=== PATIENT | male | born 1960 | race American Indian/Alaskan Native ===

== ENCOUNTER 2019-12-28 08:16 | Observation (INO) | payer MEDICARE ==
[2019-12-28 08:56] LABS: Basophils % (Auto) 0.6 % (0.0-1.8); Eosinophils # (Auto) 0.2 K/mm3 (0.0-0.4); Hemoglobin 12.9 gm/dl (11.8-15.2); Lymphocytes # (Auto) 1.3 K/mm3 (1.2-5.4); Lymphocytes % (Auto) 15.6 % (13.4-35.0); Mean Corpuscular HGB Conc 34 % (32-34); Mean Corpuscular Volume 87 fl (84-94); Monocytes # (Auto) 0.8 K/mm3 (0.0-0.8); Monocytes % (Auto) 9.5 % (0.0-7.3); Platelet Count 238 K/mm3 (140-440); Red Blood Count 4.37 M/mm3 (3.65-5.03); Red Cell Distribution Width 14.9 % (13.2-15.2)
[2019-12-28 09:19] LABS: Alanine Aminotransferase 116 units/L (7-56); Albumin 3.8 g/dL (3.9-5); BUN/Creatinine Ratio 4; Blood Urea Nitrogen 3 mg/dL (9-20); Calcium 9.1 mg/dL (8.4-10.2); Hemolysis Index 4
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
--- NOTE | 2019-12-28 12:55 | Cat Scan Report ---
CT abdomen pelvis w con INDICATION: Abd pain. TECHNIQUE: All CT scans at this location are performed using the following dose modulation technique: Automated exposure control. CONTRAST: IV. COMPARISON: None available. CT ABDOMEN: Evaluation of the parenchymal organs demonstrates diffuse thickening of the pancreas with mild adjacent inflammation. No large fluid collection or pancreatic necrosis. The remaining parenchy mal organs are unremarkable other than a subcentimeter left renal cyst. Negative for abdominal mass, fluid or inflammation. The bowel is not dilated or thickened. A a few sc attered noninflamed colonic diverticula are present. CT PELVIS: The appendix is normal. Negative for pelvic mass, fluid or inflammation. IMPRESSION: Mild/moderate diffuse pancreatitis. Signer Name: Santos Dejesus MD Signed: 12/28/2019 12:51 PM Workstation Name: [id number]
[2019-12-28 13:19] LABS: Bilirubin,Urine NEG (Negative); Blood,Urine NEG (Negative); Color,Urine Yellow (Yellow); Protein,Urine <15 mg/dL mg/dL (Negative); Urobilinogen,Urine < 2.0 mg/dL (<2.0); WBC,Urine < 1.0 /HPF (0.0-6.0)
[2019-12-28] MEDS: POTASSIUM CHLORIDE ER 20 MEQ TAB PO ONE ×2 (13:20→13:28)
[2019-12-28] MEDS: POTASSIUM CHLORIDE 10 MEQ 10 MEQ/100 ML BAG IV SCH ×6 (13:20→22:14)
[2019-12-28] MEDS ORDERED: SODIUM CHLORIDE 0.9% 500 ML 0 ML ONE (13:38)
[2019-12-28] MEDS ORDERED: HYDROmorphone 1 MG/1 ML INJ IV PRN (14:11)
[2019-12-28] MEDS ORDERED: ACETAMINOPHEN 325 MG TAB PO PRN (14:11)
[2019-12-28] MEDS ORDERED: ONDANSETRON 4 MG/2 ML INJ IV PRN (14:11)
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
[2019-12-28] MEDS ORDERED: D5W/0.9% NACL 1,000 ML IV SCH (15:00)
[2019-12-28] MEDS ORDERED: LACTULOSE 20 GM/30 ML ORAL LIQD PO PRN (15:43)
[2019-12-28] MEDS ORDERED: HYDROmorphone 1 MG/1 ML INJ ONE ×3 (16:03→23:33)
[2019-12-28] MEDS ORDERED: LACTULOSE 20 GM/30 ML ORAL LIQD ONE (16:04)
[2019-12-28] MEDS: HYDROmorphone 1 MG/1 ML INJ IV PRN ×3 (16:05→23:34)
[2019-12-28] MEDS ORDERED: HEPARIN 5,000 UNIT/1 ML VIAL ONE ×2 (16:23→22:58)
[2019-12-28] MEDS ORDERED: POTASSIUM CHLORIDE 10 MEQ 10 MEQ/100 ML BAG IV ONE ×4 (16:23→21:21)
[2019-12-28] MEDS: HEPARIN 5,000 UNIT/1 ML VIAL SUB-Q SCH ×2 (17:31→22:00)
[2019-12-28] MEDS ORDERED: SODIUM CHLORIDE 0.9% 1000 ML 1,000 ML ONE (17:39)
[2019-12-28] MEDS ORDERED: SODIUM CHLORIDE 0.9% 1000 ML 1,000 ML IV ONE (18:51)
[2019-12-29 07:06] LABS: Basophils % (Auto) 0.4 % (0.0-1.8); Eosinophils # (Auto) 0.3 K/mm3 (0.0-0.4); Eosinophils % (Auto) 3.9 % (0.0-4.3); Hematocrit 35.4 % (35.5-45.6); Hemoglobin 11.9 gm/dl (11.8-15.2); Lymphocytes # (Auto) 1.3 K/mm3 (1.2-5.4); Lymphocytes % (Auto) 18.6 % (13.4-35.0); Mean Corpuscular HGB Conc 34 % (32-34); Mean Corpuscular Volume 88 fl (84-94); Monocytes # (Auto) 0.7 K/mm3 (0.0-0.8); Monocytes % (Auto) 9.3 % (0.0-7.3); Platelet Count 232 K/mm3 (140-440); Red Blood Count 4.05 M/mm3 (3.65-5.03); Red Cell Distribution Width 14.9 % (13.2-15.2)
[2019-12-29 07:47] LABS: Alanine Aminotransferase 67 units/L (7-56); Albumin 3.2 g/dL (3.9-5); Blood Urea Nitrogen 3 mg/dL (9-20); Calcium 8.7 mg/dL (8.4-10.2); Hemolysis Index 10
[2019-12-29 07:52] LABS: BUN/Creatinine Ratio 4
[2019-12-29] MEDS: HEPARIN 5,000 UNIT/1 ML VIAL SUB-Q SCH ×2 (09:40→22:07)
[2019-12-29] MEDS: HYDROmorphone 1 MG/1 ML INJ IV PRN (09:41)
--- NOTE | 2019-12-29 13:37 | Progress Note ---
Subjective Date of service: 12/29/19 Interval history: 59-year-old male with history of hypertension presents with 2-day history of epigastric pain and also not having a bowel movement. He has generalized abdominal cramping. On patient was seen at [facility] and told him that it is constipation. Patient also had some rectal bleeding at that time. And patient had one black stool at that time. His main problem is constipation and epigastric pain pain is about 8 on a scale of 1-10 and is sharp in nature. 8 told him for small kidney stone on the left side in the past patient is alert and oriented, denies any abdominal pain but complains of bloating and tightness, states he had 3 BMs after he was given laxative Complaints of mid back pain ", states he was told of having a small kidney stone in the left kidney, denies hematuria or dysuria, denies fever or chills Lab results reviewed, CT of the abdomen and pelvis results reviewed Assessment and plan Acute pancreatitis Abdomen looks benign LFTs are close to normal However lipase increased from 250-650 this morning Continue clear liquids Patient states that he drinks about 5 small bottles of wine daily which is like 1 bottle of regular size Patient does not show any signs of withdrawal Hypokalemia Improved Hypertension Fair Mildly elevated LFTs Close to normal now Objective - Constitutional Vitals: Vital Signs - 12hr 12/29/19 12/29/19 12/29/19 03:38 07:15 11:48 Temperature 98.9 F 99.2 F 98.5 F Pulse Rate 96 H 90 94 H Respiratory 20 20 20 Rate Blood Pressure 106/60 107/61 108/69 O2 Sat by Pulse 96 99 94 Oximetry General appearance: Present: no acute distress, well-nourished, obese - EENT Eyes: PERRL, EOM intact ENT: hearing intact, clear oral mucosa - Neck Neck: supple, normal ROM, no masses or JVD - Respiratory Respiratory effort: normal Respiratory: bilateral: CTA - Cardiovascular Rhythm: regular Heart Sounds: Present: S1 & S2 Extremities: No edema - Gastrointestinal General gastrointestinal: Present: soft, non-tender Rectal Exam: deferred - Genitourinary Male genitourinary: deferred - Integumentary Integumentary: clear - Musculoskeletal Musculoskeletal: strength equal bilaterally - Neurologic Neurologic: CNII-XII intact, no focal deficits - Psychiatric Psychiatric: appropriate mood/affect - Labs CBC & Chem 7: 12/29/19 06:50 12/29/19 06:50 Labs: Abnormal lab results 12/28/19 12/29/19 12/29/19 Range/Units 12:15 06:50 06:50 Hct (35.5-45.6) % [place] % (Auto) (0.0-7.3) % Sodium (137-145) mmol/L BUN (9-20) mg/dL Creatinine (0.8-1.3) mg/dL Glucose (75-100) mg/dL ALT (7-56) units/L Albumin (3.9-5) g/dL Amylase 248 H (27-131) units/L Lipase 669 H (13-60) units/L Ur Specific [place] 1.032 H (1.003-1.030) 12/29/19 12/29/19 Range/Units 06:50 06:50 Hct 35.4 L (35.5-45.6) % [place] % (Auto) 9.3 H (0.0-7.3) % Sodium 135 L (137-145) mmol/L BUN 3 L (9-20) mg/dL Creatinine 0.7 L (0.8-1.3) mg/dL Glucose 106 H (75-100) mg/dL ALT 67 H (7-56) units/L Albumin 3.2 L (3.9-5) g/dL Amylase (27-131) units/L Lipase (13-60) units/L Ur Specific [place] (1.003-1.030)
[2019-12-29] MEDS ORDERED: SIMETHICONE 80 MG CHEW TAB PO PRN (19:09)
[2019-12-30 08:48] LABS: Blood Urea Nitrogen 6 mg/dL (9-20); Calcium 8.7 mg/dL (8.4-10.2); Hemolysis Index 12
[2019-12-30 08:49] LABS: BUN/Creatinine Ratio 9
[2019-12-30] MEDS: HEPARIN 5,000 UNIT/1 ML VIAL SUB-Q SCH (10:44)
[2019-12-30 12:09] VITALS: BP 132/68
--- NOTE | 2019-12-30 12:28 | Discharge Summary ---
Providers - Providers Date of Admission: 12/28/19 14:11 Date of discharge: 12/30/19 Attending physician: DAVID SRINIVASAN Primary care physician: TAMIKO CAMPBELL Hospitalization Reason for admission: Abdominal pain Condition: Fair Pertinent studies: CT of the abdomen and pelvis Hospital course: Patient was admitted with complaints of abdominal pain and constipation and CT of the abdomen revealed acute pancreatitis and his lipase levels were moderately elevated. He was given a laxative due to constipation and he had 3 bowel movements with good response. Started on clear liquids and diet was advanced which he tolerated well Abdomen is benign Lab results reviewed Patient states that he has follow-up with GI at [facility] and states that he has an appointment on Tuesday Patient is medically stable for discharge Disposition: TO HOME OR SELFCARE Time spent for discharge: 38 min - Discharge Diagnoses (1) Acute pancreatitis Status: Acute Qualifiers: Pancreatitis type: alcohol induced Acute pancreatitis complication: unspecified Qualified Code(s): K85.20 - Alcohol induced acute pancreatitis without necrosis or infection Comment: Patient was strongly advised to avoid drinking alcohol (2) Hypokalemia Status: Acute Comment: Improved (3) Hypertension Status: Chronic Qualifiers: Hypertension type: essential hypertension Qualified Code(s): I10 - Essential (primary) hypertension Comment: Well-controlled Core Measure Documentation - Palliative Care Palliative Care/ Comfort Measures: Not Applicable - Core Measures Any of the following diagnoses?: none Exam - Constitutional Vitals: Temp Pulse Resp BP Pulse Ox 98.3 F 84 20 132/68 98 12/30/19 12:01 12/30/19 12:01 12/30/19 12:01 12/30/19 12:01 12/30/19 12:01 General appearance: Present: no acute distress, well-nourished - EENT Eyes: Present: PERRL, EOM intact ENT: hearing intact - Neck Neck: Present: supple, normal ROM - Respiratory Respiratory effort: normal Respiratory: bilateral: CTA - Cardiovascular Rhythm: regular Heart Sounds: Present: S1 & S2 - Extremities Extremities: No edema - Abdominal General gastrointestinal: Present: soft, non-tender. Absent: hepatomegaly, splenomegaly Male genitourinary: Present: deferred - Rectal Rectal Exam: deferred - Integumentary Integumentary: Present: clear - Musculoskeletal Musculoskeletal: strength equal bilaterally - Psychiatric Psychiatric: appropriate mood/affect - Neurologic Neurologic: no focal deficits Plan Activity: advance as tolerated Weight Bearing Status: Full Weight Bearing Diet: regular, low fat Additional Instructions: Strictly avoid alcohol Follow up with: TAMIKO CAMPBELL MD [Primary Care Provider] - 7 Days
== END 2019-12-30 14:22 | disposition home or self-care (01) ==
LOC: ED 08:16 → 4A 14:11
PROVIDERS: ADMIT Internal Medicine; ATTEND Internal Medicine
DX: K85.20 Alcohol induced acute pancreatitis without necrosis or infection (principal); E87.6 Hypokalemia; I10 Essential (primary) hypertension; F17.200 Nicotine dependence, unspecified, uncomplicated; Z79.899 Other long term (current) drug therapy
CPT/HCPCS: 36415; 74177; 80048; 80053; 81001; 82150; 82550; 83036; 83690; 83735; 85025; 96361; 96365; 96366; 96372; 96375; 96376; 99285; G0378; J1170; J1644; J3480; J7030; Q9967; J7040

== ENCOUNTER 2021-12-31 11:03 | Emergency (ER) | payer MEDICARE, SELFPAY ==
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
--- NOTE | 2021-12-31 12:19 | XRay Report ---
LEFT HIP 2 VIEW(S) INDICATION / CLINICAL INFORMATION: pain COMPARISON: None available. FINDINGS: BONES / JOINT(S): No acute fracture or subluxation. There is mild degenerative change at the hips and SI joints. Mild enthesopathic changes are noted along the anterior iliac spines. SOFT TISSUES: No significant abnormality. ADDITIONAL FINDINGS: None. IMPRESSION: 1. No acute findings. Signer Name: Jamel Fernandez MD Signed: 12/31/2021 12:14 PM Workstation Name: [employer]
--- NOTE | 2021-12-31 12:20 | XRay Report ---
CHEST 1 VIEW INDICATION: chest pain. COMPARISON: 07/18/2015 FINDINGS: Support devices: None. Heart: Normal. Lungs/Pleura: No acute pulmonary or pleural findings. IMPRESSION: 1. No acute findings. Signer Name: Jamel Fernandez MD Signed: 12/31/2021 12:16 PM Workstation Name: [email or web address]
[2021-12-31 12:55] LABS: Alanine Aminotransferase 13 units/L (7-56); Albumin 4.1 g/dL (3.9-5); BUN/Creatinine Ratio 15; Blood Urea Nitrogen 9 mg/dL (9-20); Calcium 9.9 mg/dL (8.4-10.2); Hemolysis Index 26
[2021-12-31 13:25] LABS: Mucus,Urine FEW /HPF
--- NOTE | 2021-12-31 13:35 | Cat Scan Report ---
CT BRAIN: 12/31/2021 INDICATION / CLINICAL INFORMATION: Headache. COMPARISON: None available. FINDINGS: BRAIN/INTRACRANIAL STRUCTURES: Unenhanced CT images of the brain demonstrate no evidence of acute abn ormality. Ventricles and sulci are slightly prominent in size for a patient of this age, consistent with modera te cerebral atrophy. There is no evidence of acute ischemic injury, hemorrhage, or mass. There are no abnormal extra-axial fluid collections. EXTRACRANIAL STRUCTURES: Unremarkable. IMPRESSION: No acute abnormality. All CT scans at this location are performed using dose reduction to ALARA by means of automated expos ure control. Signer Name: Albino Esquivel MD Signed: 12/31/2021 1:31 PM Workstation Name: [employer]
--- NOTE | 2021-12-31 13:59 | Cat Scan Report ---
CT CERVICAL SPINE: 12/31/2021 INDICATION / CLINICAL INFORMATION: Midline c spine ttp. COMPARISON: None available. FINDINGS: CT images of the cervical spine were obtained. Images are evaluated in the axial, coronal, and sagitt al planes. There is no evidence of acute abnormality. Straightening of cervical lordosis is present with the patient positioned for this exam. Vertebral alfredo dy height and alignment is preserved. Some mild degenerative disc space narrowing and endplate irregularity is present at the C3-3-4 and C5 -6 levels. There is no evidence of osseous canal or foraminal narrowing. CRANIOCERVICAL JUNCTION: Unremarkable. PARASPINAL STRUCTURES: Unremarkable IMPRESSION: No acute abnormality All CT scans at this location are performed using dose reduction to ALARA by means of automated expos ure control. Signer Name: Albino Esquivel MD Signed: 12/31/2021 1:54 PM Workstation Name: [id number]
[2021-12-31 14:09] LABS: Color,Urine Straw (Yellow)
[2021-12-31 14:15] LABS: Basophils % (Auto) 0.7 % (0.0-1.8); Eosinophils # (Auto) 0.2 K/mm3 (0.0-0.4); Eosinophils % (Auto) 2.4 % (0.0-4.3); Hemoglobin 13.1 gm/dl (11.8-15.2); Lymphocytes # (Auto) 2.5 K/mm3 (1.2-5.4); Mean Corpuscular HGB Conc 33 % (32-34); Mean Corpuscular Volume 81 fl (84-94); Monocytes # (Auto) 0.6 K/mm3 (0.0-0.8); Monocytes % (Auto) 9.5 % (0.0-7.3); Platelet Count 212 K/mm3 (140-440); Red Blood Count 4.96 M/mm3 (3.65-5.03); Red Cell Distribution Width 17.5 % (13.2-15.2)
[2021-12-31 14:22] LABS: INR 0.95 (0.87-1.13)
[2021-12-31 14:23] LABS: Partial Thromboplastin Time 36.5 Sec. (24.2-36.6)
[2021-12-31 14:38] LABS: Alanine Aminotransferase 26 units/L (7-56); Albumin 4.4 g/dL (3.9-5); BUN/Creatinine Ratio 13; Blood Urea Nitrogen 13 mg/dL (9-20); Calcium 9.5 mg/dL (8.4-10.2); Hemolysis Index 8
[2021-12-31 17:03] VITALS: BP 151/82
--- NOTE | 2022-01-01 22:34 | Electrocardiograph Report ---
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
== END 2021-12-31 17:04 | disposition home or self-care (01) ==
LOC: ED 11:03
DX: R07.9 Chest pain, unspecified (principal); M54.2 Cervicalgia; M19.09 Primary osteoarthritis, other specified site; M25.559 Pain in unspecified hip; I10 Essential (primary) hypertension; D57.1 Sickle-cell disease without crisis
CPT/HCPCS: 36415; 70450; 71045; 72125; 80053; 81001; 83690; 83880; 84484; 85025; 85610; 85730; 93005; 99284